=== PATIENT | female | born 1935 | race Caucasian/White ===

== ENCOUNTER 2020-02-18 09:04 | Outpatient (CLI) | payer MEDICARE, SELFPAY ==
--- NOTE | ~2020-02-18 | CT_ITS ---
EXAMINATION: CT chest high resolution wo co DATE: 02/18/2020 09:36 INDICATION: Solitary pulmonary nodule TECHNIQUE: Computed tomography (CT) of the chest was performed without intravenous contrast. The dose -length product (DLP) was 273.44 mGy-cm. Automated exposure control and iterative reconstruction tech nique were employed. COMPARISON: 01/15/2018 FINDINGS: A stable 3 mm nodule of the right lower lobe is consistent with old granulomatous disease. No new or suspicious pulmonary nodule is identified. Calcified pulmonary nodules and calcified left h ilar lymph nodes are consistent with old granulomatous disease. A cardiac monitoring device is implan timbo in the left anterior chest wall. No pathologically enlarged thoracic lymph nodes are identified. The heart size is normal. Calcified coronary artery atherosclerosis is noted. The lungs are free of f ocal airspace opacities. There is a small sliding hiatal hernia. The gallbladder is surgically absent . Punctate calcifications in an otherwise normal spleen likely represent healed granulomatous disease . There is a 3 mm nonobstructing stone of the right kidney upper pole. A 2 mm nonobstructing stone is noted in the left kidney. There is exaggerated kyphosis and severe spondylosis of the thoracic spine . IMPRESSION: 1. 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 Reviewed, dictated and finalized at location A. [employer] IMPRESSION: 1. 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
== END 2020-02-18 09:05 | disposition home or self-care (01) ==
PROVIDERS: PCP Family Medicine; Visit Provider Internal Medicine Critical Care Medicine
DX: R91.1 Solitary pulmonary nodule (principal); D71 Functional disorders of polymorphonuclear neutrophils
CPT/HCPCS: 71250

== ENCOUNTER 2021-11-09 10:13 | Outpatient (CLI) | payer MEDICARE, SELFPAY ==
--- NOTE | ~2021-11-09 | US_ITS ---
US art doppler w press LE BI INDICATION: Smoking history. Claudication. TECHNIQUE: Segmental pressures and plethysmographic and Doppler waveforms of the brachial and lower e xtremity arteries were obtained. COMPARISON: None. FINDINGS: Right and left brachial artery pressures of 156 mm Hg and 157 mm Hg, respectively, are concordant (no rmal difference <= 30 mmHg). The right ankle-brachial index (NILESH) is 1.1 (normal >= 0.9-1.0). The right great toe-brachial index ( TBI) is 0.64 (normal >= 0.60). The left NILESH is 1.14. The left TBI is 0.7. IMPRESSION: 1. Normal bilateral ankle-brachial indices. Reviewed, dictated and finalized at location A.
== END 2021-11-09 10:14 | disposition home or self-care (01) ==
PROVIDERS: PCP Internal Medicine; Visit Provider Internal Medicine Cardiovascular Disease
DX: M79.604 Pain in right leg (principal); M79.605 Pain in left leg; I73.9 Peripheral vascular disease, unspecified
CPT/HCPCS: 93923